=== PATIENT | female | born 1960 | race Caucasian/White ===

== ENCOUNTER 2016-10-31 16:08 | Emergency (ER) | payer SELFPAY ==
[~2016-10-31] VITALS: Ht 165.1 cm; Wt 74.8 kg
[2016-10-31 17:04] LABS: BASO % 0.4 % (0.0-1.0); EOS # 0.1 10*3/uL (0.0-0.4); EOS % 1.2 % (1.0-4.0); HEMATOCRIT 30.3 % (37.0-47.0); HEMOGLOBIN 9.7 g/dl (12.0-16.0); LYMPH % 27.9 % (27.0-41.0); MEAN CELL VOLUME 90.4 fl (81.0-99.0); MEAN PLATELET VOLUME 9.9 fl (9.6-12.3); MONO # 0.3 10*3/uL (0.1-1.0); NEUT # 4.8 10*3/uL (2.3-7.9); NEUT % 66.1 % (47.0-73.0); PLATELET COUNT AUTOMATED 242 10*3/uL (130-400); RED BLOOD COUNT 3.35 10*6/uL (4.10-5.10); WHITE BLOOD COUNT 7.3 10*3/uL (4.8-10.8)
[2016-10-31 17:20] LABS: ALBUMIN 2.6 gm/dl (3.1-4.5); ALKALINE PHOSPHATASE 94 U/L (45-117); BILIRUBIN, TOTAL 0.3 mg/dl (0.2-1.0); BUN 9 mg/dl (7-24); CARBON DIOXIDE 29 mmol/L (21-32); CHLORIDE 110 mmol/L (98-107); EST GLOM FILT AFRICAN AMERICAN > 60 ml/min; GLUCOSE 89 mg/dL (65-99); POTASSIUM 4.1 mmol/L (3.5-5.1); SGOT/AST 16 IU/L (3-35); SGPT/ALT 14 U/L (12-78); SODIUM 140 mmol/L (136-145)
[2016-10-31 17:21] LABS: C-REACTIVE PROTEIN < 0.29 MG/DL (0-0.3)
[2016-10-31] MEDS ORDERED: PREDNISONE50 MG PO (18:09)
== END 2016-10-31 18:32 | disposition home or self-care (01) ==
LOC: ED 16:08
PROVIDERS: Registered Nurse
DX: R51 Headache (principal); H53.8 Other visual disturbances; H53.2 Diplopia; F17.200 Nicotine dependence, unspecified, uncomplicated

== ENCOUNTER 2017-08-09 21:53 | Emergency (ER) | payer SELFPAY ==
[~2017-08-09] VITALS: Ht 166.3 cm; Wt 74.8 kg
--- NOTE | ~2017-08-09 | EKG ---
[place], [place] ELECTROCARDIOGRAM REPORT NAME: MELISSA AMIN UNIT #: [id number] ROOM: DOCTOR: VIKTORIYA BRYANT MD BIRTHDATE: [birth year] DOS: 08/09/2017 TIME: 2253 hours. Normal sinus rhythm at 99 beats per minute. Low voltage T waves in lateral chest leads. No previous tracing is available for comparison. VIKTORIYA BRYANT MD CM:EKGRPT:ELECTROCARDIOGRAM REPORT 1718 2300 VIKTORIYA BRYANT MD
[~2017-08-09 21:53] MED LIST: PREDNISONE50 MG PO
[2017-08-09 22:36] LABS: BASO % 0.3 % (0.0-1.0); EOS # 0.1 10*3/uL (0.0-0.4); EOS % 2.1 % (1.0-4.0); HEMATOCRIT 25.4 % (37.0-47.0); LYMPH # 2.4 10*3/uL (1.3-4.4); LYMPH % 39.2 % (27.0-41.0); MEAN CELL VOLUME 89.1 fl (81.0-99.0); MEAN CORPUSCULAR HGB 28.1 pg (27.0-31.0); MEAN CORPUSCULAR HGB CONC 31.5 g/dl (33.0-37.0); MEAN PLATELET VOLUME 10.2 fl (9.6-12.3); MONO # 0.3 10*3/uL (0.1-1.0); MONO % 4.7 % (3.0-9.0); NEUT # 3.3 10*3/uL (2.3-7.9); NEUT % 53.2 % (47.0-73.0); NUCLEATED RED BLOOD CELL 0.3 % (0.0-0.0); PLATELET COUNT AUTOMATED 227 10*3/uL (130-400); RED BLOOD COUNT 2.85 10*6/uL (4.10-5.10); WHITE BLOOD COUNT 6.1 10*3/uL (4.8-10.8)
[2017-08-09 22:53] LABS: ALBUMIN 2.7 gm/dl (3.1-4.5); ALKALINE PHOSPHATASE 75 U/L (45-117); BUN 13 mg/dl (7-24); CHLORIDE 107 mmol/L (98-107); POTASSIUM 3.9 mmol/L (3.5-5.1); SGOT/AST 17 IU/L (3-35); SGPT/ALT 14 U/L (12-78); SODIUM 135 mmol/L (136-145)
[2017-08-09 22:59] LABS: TOTAL PROTEIN 11.9 gm/dL (6.4-8.2)
[2017-08-09 23:00] LABS: TROPONIN I < 0.015 ng/ml (<0.045)
[2017-08-10] MEDS ORDERED: CYCLOBENZAPRINE5 M3 PO (02:00)
[2017-08-10] MEDS ORDERED: NORCO 5-325 TA1 EACH PO (02:00)
[2017-08-10] MEDS ORDERED: NAPROSYN500 MG PO (02:00)
== END 2017-08-10 02:06 | disposition home or self-care (01) ==
LOC: ED 21:53
PROVIDERS: Physician Assistant
DX: M25.512 Pain in left shoulder (principal); F17.200 Nicotine dependence, unspecified, uncomplicated; Z79.899 Other long term (current) drug therapy; X50.9XXA Other and unspecified overexertion or strenuous movements or postures, initial encounter; Y93.89 Activity, other specified; Y92.69 Other specified industrial and construction area as the place of occurrence of the external cause; Y99.9 Unspecified external cause status

== ENCOUNTER → 2017-08-30 | Outpatient (CLI) | payer MEDICAID ==
[~2017-08-30] MED LIST changes: +CYCLOBENZAPRINE5 M3 PO; +NAPROSYN500 MG PO; +NORCO 5-325 TA1 EACH PO
[2017-08-30 16:46] LABS: BASO % 0.5 % (0.0-1.0); EOS # 0.1 10*3/uL (0.0-0.4); EOS % 1.8 % (1.0-4.0); HEMOGLOBIN 8.3 g/dl (12.0-16.0); LYMPH # 2.5 10*3/uL (1.3-4.4); MEAN CELL VOLUME 89.1 fl (81.0-99.0); MEAN CORPUSCULAR HGB 27.4 pg (27.0-31.0); MEAN CORPUSCULAR HGB CONC 30.7 g/dl (33.0-37.0); MONO # 0.2 10*3/uL (0.1-1.0); MONO % 4.1 % (3.0-9.0); NEUT # 2.7 10*3/uL (2.3-7.9); NEUT % 48.1 % (47.0-73.0); NUCLEATED RED BLOOD CELL 0.4 % (0.0-0.0); PLATELET COUNT AUTOMATED 258 10*3/uL (130-400); RED BLOOD COUNT 3.03 10*6/uL (4.10-5.10); RED CELL DISTRI WIDTH 20.5 % (0-14.5); WHITE BLOOD COUNT 5.6 10*3/uL (4.8-10.8)
[2017-08-30 17:08] LABS: ALBUMIN 2.8 gm/dl (3.1-4.5); CREATININE 1.22 mg/dL (0.55-1.02); POTASSIUM 3.7 mmol/L (3.5-5.1)
[2017-08-30 17:56] LABS: URIC ACID 6.9 mg/dL (2.6-6.0)
[2017-08-30 18:07] LABS: TOTAL PROTEIN 12.8 gm/dL (6.4-8.2)
[2017-08-31 07:04] LABS: TOTAL PROTEIN, SERUM 11.8 g/dL (6.0-8.5)
[2017-09-01 00:07] LABS: BETA-2 MICROGLOBULIN 010181 4.6 mg/L (0.6-2.4)
[2017-09-02 15:05] LABS: A/G RATIO 0.4 (0.7-1.7); ALBUMIN 3.4 g/dL (2.9-4.4); ALPHA-1-GLOBULIN 0.2 g/dL (0.0-0.4); ALPHA-2-GLOBULIN 0.7 g/dL (0.4-1.0); BETA GLOBULIN 1.1 g/dL (0.7-1.3); GAMMA GLOBULIN 6.4 g/dL (0.4-1.8); GLOBULIN, TOTAL 8.4 g/dL (2.2-3.9); M-SPIKE 6.3 g/dL (Not Observed)
== END | disposition home or self-care (01) ==
LOC: LAB 16:26
PROVIDERS: Chiropractor Orthopedic
DX: D49.89 Neoplasm of unspecified behavior of other specified sites (principal)

== ENCOUNTER → 2017-09-02 | Outpatient (CLI) | payer MEDICAID ==
[2017-09-03 15:07] LABS: ALBUMIN, URINE 14.3 % (.); ALPHA - 2 - GLOBULIN, URINE 13.4 % (.); BETA GLOBULIN, URINE 36.7 % (.); GAMMA GLOBULIN, URINE 35.7 % (.); M-SPIKE, % Not Observed % (Not Observed); PROTEIN,TOTAL - URINE RANDOM <4.0 mg/dL (Not Estab.)
== END | disposition home or self-care (01) ==
LOC: LAB 10:19
PROVIDERS: Chiropractor Orthopedic
DX: D49.89 Neoplasm of unspecified behavior of other specified sites (principal)

== ENCOUNTER → 2017-09-09 | Outpatient (CLI) | payer OTHER ==
[2017-09-09 14:28] LABS: FERRITIN 35.4 ng/mL (10.0-291.0)
[2017-09-10 08:10] LABS: IMMUNOGLOBULIN G, QNT 7267 mg/dL (700-1600); IMMUNOGLOBULIN M, QNT 9 mg/dL (26-217)
== END | disposition home or self-care (01) ==
LOC: LAB 13:25
PROVIDERS: Chiropractor Orthopedic
DX: D49.89 Neoplasm of unspecified behavior of other specified sites (principal)

== ENCOUNTER → 2017-10-20 | Outpatient (CLI) | payer OTHER ==
[2017-10-20 10:43] LABS: HEMATOCRIT 30.1 % (37.0-47.0); HEMOGLOBIN 9.6 g/dl (12.0-16.0); MEAN CORPUSCULAR HGB 29.4 pg (27.0-31.0); MEAN CORPUSCULAR HGB CONC 31.9 g/dl (33.0-37.0); MEAN PLATELET VOLUME 10.4 fl (9.6-12.3); NUCLEATED RED BLOOD CELL 0.1 10*3/uL (0.0-0.0); PLATELET COUNT AUTOMATED 165 10*3/uL (130-400); RED BLOOD COUNT 3.27 10*6/uL (4.10-5.10); RED CELL DISTRI WIDTH 17.8 % (0-14.5); WHITE BLOOD COUNT 4.8 10*3/uL (4.8-10.8)
[2017-10-20 11:08] LABS: ALBUMIN 2.4 gm/dl (3.1-4.5); CREATININE 1.15 mg/dL (0.55-1.02); PLATELET SUFFICIENCY NORMAL (NORMAL); POLYCHROMASIA SLIGHT; POTASSIUM 4.1 mmol/L (3.5-5.1); ROULEAUX MARKED; TOTAL CELLS COUNTED 100 #CELLS; TOTAL PROTEIN 11.6 gm/dL (6.4-8.2)
== END | disposition home or self-care (01) ==
LOC: LAB 10:16
PROVIDERS: Internal Medicine Hematology & Oncology
DX: C90.00 Multiple myeloma not having achieved remission (principal); R79.89 Other specified abnormal findings of blood chemistry

== ENCOUNTER → 2017-10-22 | Outpatient (CLI) | payer OTHER ==
[2017-10-24 16:10] LABS: ALBUMIN, URINE 29.9 % (.); ALPHA - 2 - GLOBULIN, URINE 20.3 % (.); ALPHA-1-GLOBULIN, URINE 8.8 % (.); BETA GLOBULIN, URINE 25.8 % (.); GAMMA GLOBULIN, URINE 15.1 % (.); M-SPIKE, % 8.3 % (Not Observed); M-SPIKE, MG/24 HR 10.2 mg/24 hr (Not Observed); PROTEIN,TOTAL - URINE RANDOM 4.1 mg/dL (Not Estab.)
== END | disposition home or self-care (01) ==
LOC: LAB 11:57
PROVIDERS: Internal Medicine Hematology & Oncology
DX: C90.00 Multiple myeloma not having achieved remission (principal)

== ENCOUNTER → 2017-10-27 | Outpatient (CLI) | payer OTHER ==
[2017-10-27 11:10] LABS: HEMATOCRIT 30.2 % (37.0-47.0); HEMOGLOBIN 9.4 g/dl (12.0-16.0); MEAN CELL VOLUME 92.6 fl (81.0-99.0); MEAN CORPUSCULAR HGB 28.8 pg (27.0-31.0); MEAN CORPUSCULAR HGB CONC 31.1 g/dl (33.0-37.0); MEAN PLATELET VOLUME 11.7 fl (9.6-12.3); NUCLEATED RED BLOOD CELL 0.1 10*3/uL (0.0-0.0); NUCLEATED RED BLOOD CELL 1.3 % (0.0-0.0); PLATELET COUNT AUTOMATED 152 10*3/uL (130-400); RED BLOOD COUNT 3.26 10*6/uL (4.10-5.10); RED CELL DISTRI WIDTH 18.3 % (0-14.5); WHITE BLOOD COUNT 5.3 10*3/uL (4.8-10.8)
[2017-10-27 11:28] LABS: TOTAL CELLS COUNTED 100 #CELLS
[2017-10-27 11:33] LABS: PLATELET SUFFICIENCY NORMAL (NORMAL); POLYCHROMASIA SLIGHT; ROULEAUX MARKED
== END | disposition home or self-care (01) ==
LOC: LAB 10:13
PROVIDERS: Internal Medicine Hematology & Oncology
DX: C90.00 Multiple myeloma not having achieved remission (principal)

== ENCOUNTER → 2017-11-12 | Outpatient (CLI) | payer OTHER ==
[2017-11-12 13:39] LABS: HEMATOCRIT 27.7 % (37.0-47.0); HEMOGLOBIN 8.6 g/dl (12.0-16.0); MEAN CELL VOLUME 92.6 fl (81.0-99.0); MEAN CORPUSCULAR HGB 28.8 pg (27.0-31.0); MEAN PLATELET VOLUME 9.2 fl (9.6-12.3); NUCLEATED RED BLOOD CELL 1.2 % (0.0-0.0); PLATELET COUNT AUTOMATED 200 10*3/uL (130-400); RED BLOOD COUNT 2.99 10*6/uL (4.10-5.10); RED CELL DISTRI WIDTH 18.6 % (0-14.5); WHITE BLOOD COUNT 3.3 10*3/uL (4.8-10.8)
[2017-11-12 14:05] LABS: ATYPICAL LYMPHS 1 % (0-0); BASOPHILS 2 % (0-1); PLATELET SUFFICIENCY NORMAL (NORMAL); POLYCHROMASIA SLIGHT; TOTAL CELLS COUNTED 100 #CELLS
[2017-11-12 14:06] LABS: ALBUMIN 2.6 gm/dl (3.1-4.5); CREATININE 1.17 mg/dL (0.55-1.02); POTASSIUM 3.7 mmol/L (3.5-5.1); TOTAL PROTEIN 10.3 gm/dL (6.4-8.2)
== END | disposition home or self-care (01) ==
LOC: LAB 13:19
PROVIDERS: Internal Medicine Hematology & Oncology
DX: C90.00 Multiple myeloma not having achieved remission (principal)

== ENCOUNTER → 2017-11-25 | Outpatient (CLI) | payer OTHER ==
[2017-11-25 15:56] LABS: HEMATOCRIT 24.9 % (37.0-47.0); MEAN CELL VOLUME 92.2 fl (81.0-99.0); MEAN CORPUSCULAR HGB 29.6 pg (27.0-31.0); MEAN CORPUSCULAR HGB CONC 32.1 g/dl (33.0-37.0); MEAN PLATELET VOLUME 11.3 fl (9.6-12.3); NUCLEATED RED BLOOD CELL 0.1 10*3/uL (0.0-0.0); NUCLEATED RED BLOOD CELL 1.5 % (0.0-0.0); PLATELET COUNT AUTOMATED 106 10*3/uL (130-400); RED CELL DISTRI WIDTH 19.9 % (0-14.5); WHITE BLOOD COUNT 3.3 10*3/uL (4.8-10.8)
[2017-11-25 16:21] LABS: BASOPHILS 2 % (0-1); PLATELET SUFFICIENCY LOW (NORMAL); TOTAL CELLS COUNTED 100 #CELLS
[2017-11-25 16:22] LABS: POLYCHROMASIA SLIGHT
== END | disposition home or self-care (01) ==
LOC: LAB 15:38
PROVIDERS: Internal Medicine Hematology & Oncology
DX: C90.00 Multiple myeloma not having achieved remission (principal)

== ENCOUNTER → 2017-12-12 | Outpatient (CLI) | payer OTHER ==
[~2017-12-12] MED LIST changes: +ASPIRIN81 M1 PO; +COLACE100 MG PO; +DECADRON4 MG PO; +OMEPRAZOLE40 MG PO; +ONDANSETRON ODT8 MG PO; +REVLIMID25 MG PO; +TRAMADOL HCL50 MG PO; +ZOVIRAX400 MG PO
[2017-12-12 09:30] VITALS: BP 106/56
[2017-12-12 09:52] LABS: BASO # 0.1 10*3/uL (0.0-0.1); BASO % 2.1 % (0.0-1.0); EOS % 1.7 % (1.0-4.0); HEMATOCRIT 24.3 % (37.0-47.0); HEMOGLOBIN 7.4 g/dl (12.0-16.0); LYMPH # 0.6 10*3/uL (1.3-4.4); LYMPH % 26.1 % (27.0-41.0); MEAN CELL VOLUME 95.7 fl (81.0-99.0); MEAN CORPUSCULAR HGB 29.1 pg (27.0-31.0); MEAN CORPUSCULAR HGB CONC 30.5 g/dl (33.0-37.0); MEAN PLATELET VOLUME 10.7 fl (9.6-12.3); MONO # 0.3 10*3/uL (0.1-1.0); MONO % 11.5 % (3.0-9.0); NEUT # 1.4 10*3/uL (2.3-7.9); NEUT % 58.2 % (47.0-73.0); PLATELET COUNT AUTOMATED 233 10*3/uL (130-400); RED BLOOD COUNT 2.54 10*6/uL (4.10-5.10); RED CELL DISTRI WIDTH 20.5 % (0-14.5); WHITE BLOOD COUNT 2.3 10*3/uL (4.8-10.8)
[2017-12-12 11:25] VITALS: BP 97/46
[2017-12-12 11:45] VITALS: BP 99/57
[2017-12-12 12:20] VITALS: BP 93/59
[2017-12-12 14:15] VITALS: BP 92/57
[2017-12-12 14:50] VITALS: BP 96/62
[2017-12-12 15:44] LABS: BASO # 0.1 10*3/uL (0.0-0.1); BASO % 2.3 % (0.0-1.0); EOS % 1.2 % (1.0-4.0); HEMATOCRIT 30.2 % (37.0-47.0); LYMPH # 0.8 10*3/uL (1.3-4.4); LYMPH % 31.4 % (27.0-41.0); MEAN CORPUSCULAR HGB 29.3 pg (27.0-31.0); MEAN CORPUSCULAR HGB CONC 31.8 g/dl (33.0-37.0); MEAN PLATELET VOLUME 10.4 fl (9.6-12.3); MONO # 0.3 10*3/uL (0.1-1.0); MONO % 13.2 % (3.0-9.0); NEUT # 1.3 10*3/uL (2.3-7.9); NEUT % 51.5 % (47.0-73.0); PLATELET COUNT AUTOMATED 209 10*3/uL (130-400); RED BLOOD COUNT 3.28 10*6/uL (4.10-5.10); RED CELL DISTRI WIDTH 18.6 % (0-14.5); WHITE BLOOD COUNT 2.6 10*3/uL (4.8-10.8)
[2017-12-12 15:46] LABS: HEMOGLOBIN 9.6 g/dl (12.0-16.0); MEAN CELL VOLUME 92.1 fl (81.0-99.0)
== END | disposition home or self-care (01) ==
LOC: TRNFUSION 03:30
PROVIDERS: Internal Medicine Hematology & Oncology
DX: C90.00 Multiple myeloma not having achieved remission (principal)

== ENCOUNTER → 2017-12-29 | Outpatient (CLI) | payer OTHER ==
[2017-12-29 14:42] LABS: BASO % 0.7 % (0.0-1.0); EOS # 0.1 10*3/uL (0.0-0.4); EOS % 3.1 % (1.0-4.0); HEMATOCRIT 31.9 % (37.0-47.0); LYMPH # 1.6 10*3/uL (1.3-4.4); LYMPH % 35.1 % (27.0-41.0); MEAN CELL VOLUME 92.2 fl (81.0-99.0); MEAN CORPUSCULAR HGB 28.9 pg (27.0-31.0); MEAN CORPUSCULAR HGB CONC 31.3 g/dl (33.0-37.0); MEAN PLATELET VOLUME 12.6 fl (9.6-12.3); MONO # 0.3 10*3/uL (0.1-1.0); MONO % 6.7 % (3.0-9.0); NEUT # 2.4 10*3/uL (2.3-7.9); NEUT % 53.5 % (47.0-73.0); PLATELET COUNT AUTOMATED 139 10*3/uL (130-400); RED BLOOD COUNT 3.46 10*6/uL (4.10-5.10); RED CELL DISTRI WIDTH 18.3 % (0-14.5); WHITE BLOOD COUNT 4.5 10*3/uL (4.8-10.8)
[2017-12-29 14:58] LABS: ALBUMIN 2.6 gm/dl (3.1-4.5); ALKALINE PHOSPHATASE 63 U/L (45-117); BUN 11 mg/dl (7-24); CHLORIDE 105 mmol/L (98-107); CREATININE 1.01 mg/dL (0.55-1.02); POTASSIUM 3.8 mmol/L (3.5-5.1); SGOT/AST 14 IU/L (3-35); SGPT/ALT 15 U/L (12-78); SODIUM 137 mmol/L (136-145); TOTAL PROTEIN 8.3 gm/dL (6.4-8.2)
== END | disposition home or self-care (01) ==
LOC: LAB 14:09
PROVIDERS: Internal Medicine Hematology & Oncology
DX: C90.00 Multiple myeloma not having achieved remission (principal)

== ENCOUNTER → 2018-01-20 | Outpatient (CLI) | payer OTHER ==
[2018-01-20 14:10] LABS: HEMATOCRIT 33.4 % (37.0-47.0); HEMOGLOBIN 10.2 g/dl (12.0-16.0); MEAN CELL VOLUME 93.3 fl (81.0-99.0); MEAN CORPUSCULAR HGB 28.5 pg (27.0-31.0); MEAN CORPUSCULAR HGB CONC 30.5 g/dl (33.0-37.0); MEAN PLATELET VOLUME 12.1 fl (9.6-12.3); PLATELET COUNT AUTOMATED 204 10*3/uL (130-400); RED BLOOD COUNT 3.58 10*6/uL (4.10-5.10)
[2018-01-20 14:22] LABS: ALBUMIN 2.9 gm/dl (3.1-4.5); ALKALINE PHOSPHATASE 75 U/L (45-117); BUN 12 mg/dl (7-24); CHLORIDE 108 mmol/L (98-107); CREATININE 0.97 mg/dL (0.55-1.02); POTASSIUM 4.2 mmol/L (3.5-5.1); SGOT/AST 10 IU/L (3-35); SGPT/ALT 13 U/L (12-78); SODIUM 141 mmol/L (136-145); TOTAL PROTEIN 8.4 gm/dL (6.4-8.2)
[2018-01-20 14:32] LABS: WHITE BLOOD COUNT 1.4 10*3/uL (4.8-10.8)
[2018-01-20 15:06] LABS: TOTAL CELLS COUNTED 100 #CELLS
[2018-01-20 15:07] LABS: OVALOCYTES FEW; PLATELET SUFFICIENCY NORMAL (NORMAL); POLYCHROMASIA SLIGHT
== END | disposition home or self-care (01) ==
LOC: LAB 13:46
PROVIDERS: Internal Medicine Hematology & Oncology
DX: C90.00 Multiple myeloma not having achieved remission (principal)

== ENCOUNTER → 2019-07-21 | Outpatient (CLI) | payer OTHER | END | disposition home or self-care (01) | LOC: MAMMO 15:22 | DX: Z12.31 Encounter for screening mammogram for malignant neoplasm of breast (principal) ==

== ENCOUNTER → 2019-08-13 | Outpatient (CLI) | payer OTHER | END | disposition home or self-care (01) | LOC: US 10:30 | DX: R92.8 Other abnormal and inconclusive findings on diagnostic imaging of breast (principal) ==

== ENCOUNTER 2019-09-26 12:09 | Emergency (ER) | payer OTHER ==
[~2019-09-26] VITALS: Ht 162.5 cm; Wt 77.1 kg
[2019-09-26 13:27] LABS: HEMATOCRIT 39.4 % (37.0-47.0); HEMOGLOBIN 13.2 g/dl (12.0-16.0); MEAN CELL VOLUME 91.6 fl (81.0-99.0); MEAN CORPUSCULAR HGB 30.7 pg (27.0-31.0); MEAN CORPUSCULAR HGB CONC 33.5 g/dl (33.0-37.0); MEAN PLATELET VOLUME 11.3 fl (9.6-12.3); PLATELET COUNT AUTOMATED 149 10*3/uL (130-400); RED CELL DISTRI WIDTH 14.2 % (0-14.5); WHITE BLOOD COUNT 2.2 10*3/uL (4.8-10.8)
[2019-09-26 13:37] LABS: ACT PARTIAL THROMBO TIME 61.6 SECONDS (20.0-32.1); INTERNATIONAL NORM RATIO 1.7 (2.0-3.5)
[2019-09-26 13:44] LABS: ALBUMIN 2.4 gm/dl (3.1-4.5); ALKALINE PHOSPHATASE 56 U/L (45-117); BUN 16 mg/dl (7-24); CHLORIDE 101 mmol/L (98-107); CREATININE 1.17 mg/dL (0.55-1.02); LIPASE 54 U/L (73-393); POTASSIUM 3.6 mmol/L (3.5-5.1); SGOT/AST 18 IU/L (3-35); SGPT/ALT 31 U/L (12-78); SODIUM 133 mmol/L (136-145); TOTAL PROTEIN 7.2 gm/dL (6.4-8.2); TROPONIN I < 0.015 ng/ml (<0.045)
[2019-09-26 13:50] LABS: BURR CELLS FEW; PLATELET SUFFICIENCY NORMAL (NORMAL); POLYCHROMASIA SLIGHT; SCHISTOCYTES FEW; TOTAL CELLS COUNTED 100 #CELLS; TOXIC GRANULATION MODERATE
[2019-09-26 15:22] LABS: BILIRUBIN 1+ (NEGATIVE); BLOOD 3+ (NEGATIVE); CLARITY SL CLOUDY (CLEAR); GLUCOSE NEGATIVE (NEGATIVE); KETONE TRACE (NEGATIVE); LEUKO ESTERASE NEGATIVE (NEGATIVE); NITRITE NEGATIVE (NEGATIVE); UROBILINOGEN 0.2 E.U./dl (0.2-1.0)
[2019-09-26 15:26] LABS: COLOR ORANGE (YELLOW)
[2019-09-26 15:27] LABS: WBC 0-2 wbc/hpf (0-5)
[2019-09-26 15:28] LABS: BACTERIA 3+
== END 2019-09-26 17:36 | disposition short-term general hospital (02) ==
LOC: ED 12:09
PROVIDERS: Physician Assistant
DX: D70.9 Neutropenia, unspecified (principal); A41.9 Sepsis, unspecified organism; C90.00 Multiple myeloma not having achieved remission; J18.9 Pneumonia, unspecified organism; K21.9 Gastro-esophageal reflux disease without esophagitis; F17.200 Nicotine dependence, unspecified, uncomplicated; Z79.899 Other long term (current) drug therapy; Z79.82 Long term (current) use of aspirin

== ENCOUNTER → 2020-04-05 | Outpatient (CLI) | payer MEDICARE, MEDICAID | END | disposition home or self-care (01) | LOC: RAD 11:53 | PROVIDERS: ATTEND Family Medicine | DX: F17.210 Nicotine dependence, cigarettes, uncomplicated (principal) ==

== ENCOUNTER 2020-09-05 16:53 | Emergency (ER) | payer MEDICARE, MEDICAID | END 2020-09-05 19:01 | disposition left against medical advice (07) | LOC: ED 16:53 | DX: R53.83 Other fatigue (principal); R53.1 Weakness; Z53.21 Procedure and treatment not carried out due to patient leaving prior to being seen by health care provider ==

== ENCOUNTER → 2021-03-10 | Outpatient (CLI) | payer OTHER | END | disposition home or self-care (01) | LOC: RAD 12:43 | PROVIDERS: ATTEND Family Medicine | DX: J84.10 Pulmonary fibrosis, unspecified (principal); J06.9 Acute upper respiratory infection, unspecified ==

== ENCOUNTER → 2021-10-30 | Outpatient (CLI) | payer OTHER ==
[2021-10-30 17:45] LABS: BASO % 0.2 % (0.0-1.0); EOS # 0.1 10*3/uL (0.0-0.4); EOS % 1.5 % (1.0-4.0); HEMATOCRIT 38.7 % (37.0-47.0); LYMPH # 0.6 10*3/uL (1.3-4.4); LYMPH % 10.2 % (27.0-41.0); MEAN CELL VOLUME 94.9 fl (81.0-99.0); MEAN CORPUSCULAR HGB 30.6 pg (27.0-31.0); MEAN CORPUSCULAR HGB CONC 32.3 g/dl (33.0-37.0); MEAN PLATELET VOLUME 9.7 fl (9.6-12.3); MONO # 0.3 10*3/uL (0.1-1.0); MONO % 5.6 % (3.0-9.0); NEUT # 4.9 10*3/uL (2.3-7.9); PLATELET COUNT AUTOMATED 155 10*3/uL (130-400); RED BLOOD COUNT 4.08 10*6/uL (4.10-5.10); RED CELL DISTRI WIDTH 15.1 % (0-14.5); WHITE BLOOD COUNT 5.9 10*3/uL (4.8-10.8)
[2021-10-30 17:59] LABS: BUN 8 mg/dl (7-24); CHLORIDE 108 mmol/L (98-107); CREATININE 0.67 mg/dL (0.55-1.02); POTASSIUM 3.9 mmol/L (3.5-5.1); SODIUM 139 mmol/L (136-145)
== END | disposition home or self-care (01) ==
LOC: LAB 17:10
PROVIDERS: ATTEND Family Medicine
DX: R91.1 Solitary pulmonary nodule (principal); J06.9 Acute upper respiratory infection, unspecified

== ENCOUNTER → 2022-03-23 | Outpatient (CLI) | payer OTHER | END | disposition home or self-care (01) | LOC: RAD 16:15 | PROVIDERS: ATTEND Family Medicine | DX: J43.8 Other emphysema (principal) ==

== ENCOUNTER 2024-05-04 15:07 | Emergency (ER) | payer OTHER ==
[~2024-05-04] VITALS: Ht 157.4 cm; Wt 61.2 kg
[2024-05-04] MEDS ORDERED: Acetaminophen/Oxycodone 5 MG/325 MG TABLET PO ONE (15:20)
[2024-05-04 16:14] LABS: BASO % 0.5 % (0.0-1.0); EOS # 0.1 10*3/uL (0.0-0.4); EOS % 1.4 % (1.0-4.0); HEMATOCRIT 35.7 % (37.0-47.0); LYMPH # 0.2 10*3/uL (1.3-4.4); LYMPH % 2.7 % (27.0-41.0); MEAN CELL VOLUME 102.9 fl (81.0-99.0); MEAN CORPUSCULAR HGB CONC 31.1 g/dl (33.0-37.0); MONO # 0.3 10*3/uL (0.1-1.0); MONO % 4.2 % (3.0-9.0); NEUT # 5.9 10*3/uL (2.3-7.9); NEUT % 88.5 % (47.0-73.0); PLATELET COUNT AUTOMATED 187 10*3/uL (130-400); RED BLOOD COUNT 3.47 10*6/uL (4.10-5.10); RED CELL DISTRI WIDTH 19.8 % (0-14.5); WHITE BLOOD COUNT 6.6 10*3/uL (4.8-10.8)
[2024-05-04 16:29] LABS: POTASSIUM 3.4 mmol/L (3.4-5.1)
[2024-05-04] MEDS ORDERED: SODIUM CHLORIDE 0.9% 1,000 ML IV ONE (16:35)
[2024-05-04] MEDS ORDERED: MORPHINE Sulfate 2 MG/ML SYR IV ONE (16:35)
[2024-05-04] MEDS ORDERED: NEURONTIN300 MG PO (17:33)
[2024-05-04] MEDS ORDERED: OXYCODONE5 M1 PO (17:33)
== END 2024-05-04 18:56 | disposition short-term general hospital (02) ==
LOC: ED 15:07
PROVIDERS: Internal Medicine
DX: S82.391A Other fracture of lower end of right tibia, initial encounter for closed fracture (principal); K21.9 Gastro-esophageal reflux disease without esophagitis; Z98.890 Other specified postprocedural states; W07.XXXA Fall from chair, initial encounter; Y93.89 Activity, other specified; Y92.009 Unspecified place in unspecified non-institutional (private) residence as the place of occurrence of the external cause; Y99.8 Other external cause status

== ENCOUNTER 2024-06-02 21:43 | Inpatient (IN) | payer OTHER, MEDICAID ==
[~2024-06-02] VITALS: Ht 157.4 cm; Wt 59.9 kg
[~2024-06-02 21:43] MED LIST changes: +NEURONTIN300 MG PO; +OXYCODONE5 M1 PO
[2024-06-02 21:58] VITALS: BP 98/42
[2024-06-02] MEDS ORDERED: SODIUM CHLORIDE 0.9% 1,000 ML IV SCH (22:30)
[2024-06-02 22:47] LABS: HEMATOCRIT 27.5 % (37.0-47.0); MEAN CELL VOLUME 101.5 fl (81.0-99.0); MEAN CORPUSCULAR HGB 30.3 pg (27.0-31.0); MEAN CORPUSCULAR HGB CONC 29.8 g/dl (33.0-37.0); MEAN PLATELET VOLUME 9.9 fl (9.6-12.3); PLATELET COUNT AUTOMATED 180 10*3/uL (130-400); RED BLOOD COUNT 2.71 10*6/uL (4.10-5.10); RED CELL DISTRI WIDTH 19.2 % (0-14.5); WHITE BLOOD COUNT 5.2 10*3/uL (4.8-10.8)
[2024-06-02 22:49] LABS: MANUAL DIFF REFLEX YES
[2024-06-02 22:58] LABS: ACT PARTIAL THROMBO TIME 60.1 SECONDS (20.0-32.1)
[2024-06-02 23:07] LABS: BUN 15 mg/dl (9-23); CHLORIDE 107 mmol/L (98-107); LIPASE 21 U/L (12-53)
[2024-06-02 23:15] LABS: PLATELET SUFFICIENCY NORMAL (NORMAL); TOTAL CELLS COUNTED 100 #CELLS
[2024-06-03] VITALS (15 sets, daily range): BP systolic 79–137; BP diastolic 41–60
[2024-06-03] MEDS ORDERED: Ceftriaxone Sodium 1 GM/10 ML SYR IV ONE (01:20)
[2024-06-03] MEDS ORDERED: AZITHROMYCIN 250 MG TAB PO ONE (01:20)
[2024-06-03] MEDS ORDERED: SODIUM CHLORIDE 0.9% 1,000 ML IV SCH (02:45)
[2024-06-03] MEDS ORDERED: MORPHINE Sulfate 2 MG/ML SYR IV PRN (02:55)
[2024-06-03] MEDS ORDERED: Albuterol Sulf/Ipratropium 3 ML VIAL NEB PRN (02:55)
[2024-06-03] MEDS ORDERED: BISACODYL 5 MG TAB PO PRN (02:55)
[2024-06-03] MEDS ORDERED: Acetaminophen/Hydrocodone 5 MG/325 MG TABLET PO PRN (02:55)
[2024-06-03] MEDS ORDERED: TEMAZEPAM 15 MG CAP PO PRN (02:55)
[2024-06-03] MEDS ORDERED: BISACODYL 10 MG SUPP R PRN (02:55)
[2024-06-03] MEDS ORDERED: Ondansetron Hydrochloride 4 MG/2 ML VIAL IV PRN (02:55)
[2024-06-03] MEDS ORDERED: Magnesium Hydroxide 30 ML UDC PO PRN (02:55)
[2024-06-03] MEDS ORDERED: ACETAMINOPHEN 325 MG TAB PO PRN (02:55)
[2024-06-03] MEDS ORDERED: ACETAMINOPHEN 650 MG SUPP R PRN (02:55)
[2024-06-03] MEDS ORDERED: SODIUM CHLORIDE 0.9% 1,000 ML IV ONE ×2 (03:05→21:25)
[2024-06-03 03:28] LABS: ABG O2 SATURATION 95.8 % (94.0-98.0); ARTERIAL BLOOD GAS PH 7.389 (7.350-7.450); ARTERIAL BLOOD GAS PO2 88.4 mmHg (83.0-108.0)
[2024-06-03 03:36] LABS: ABG BASE EXCESS -2.4 mmol/L (-2.0-3.0)
[2024-06-03] MEDS ORDERED: REMERON15 M2 PO (05:30)
[2024-06-03] MEDS ORDERED: POTASSIUM CHLO20 ME3 PO (05:31)
[2024-06-03] MEDS ORDERED: SMZ/TMP DS 800-160 (05:34)
[2024-06-03] MEDS ORDERED: XARE20MG PO (05:38)
[2024-06-03] MEDS ORDERED: NATURE'S BLEND F1 MG PO (05:39)
[2024-06-03] MEDS ORDERED: FEOSOL325 MG PO (05:41)
[2024-06-03] MEDS ORDERED: ASCORBIC ACID500 M2 PO (05:42)
[2024-06-03] MEDS ORDERED: Pantoprazole Sodium 40 MG TAB PO SCH (06:00)
[2024-06-03 06:26] LABS: HEMATOCRIT 24.2 % (37.0-47.0); MEAN CELL VOLUME 104.3 fl (81.0-99.0); MEAN CORPUSCULAR HGB CONC 29.8 g/dl (33.0-37.0); MEAN PLATELET VOLUME 10.2 fl (9.6-12.3); PLATELET COUNT AUTOMATED 157 10*3/uL (130-400); RED BLOOD COUNT 2.32 10*6/uL (4.10-5.10); RED CELL DISTRI WIDTH 19.4 % (0-14.5); WHITE BLOOD COUNT 4.3 10*3/uL (4.8-10.8)
[2024-06-03 06:27] LABS: MANUAL DIFF REFLEX YES
[2024-06-03] MEDS ORDERED: IOHEXOL 350 MG/ML 100 ML VIAL IV ONE (07:15)
[2024-06-03] MEDS ORDERED: SODIUM CHLORIDE 0.9% 100 ML BAG IV ONE (07:15)
[2024-06-03 07:24] LABS: BURR CELLS FEW; OVALOCYTES FEW; PLATELET SUFFICIENCY NORMAL (NORMAL); POLYCHROMASIA SLIGHT; ROULEAUX SLIGHT; SCHISTOCYTES FEW; TOTAL CELLS COUNTED 100 #CELLS; TOXIC GRANULATION SLIGHT; VACUOLATION OF NEUTROPHILS SLIGHT
[2024-06-03 07:31] LABS: ALKALINE PHOSPHATASE 79 U/L (46-116); BUN 11 mg/dl (9-23); CHLORIDE 111 mmol/L (98-107); CHOLESTEROL 113 mg/dL (<200); FREE T4 0.92 ng/dl (0.89-1.76); LDL CHOLESTEROL 55 mg/dL (9-159); POTASSIUM 3.6 mmol/L (3.4-5.1); TRIGLYCERIDES 128 mg/dl (<150)
[2024-06-03 07:33] LABS: SGPT/ALT < 7 U/L (5-49)
[2024-06-03 07:53] LABS: VITAMIN D, 25-HYDROXY 44.9 ng/mL (30-100)
[2024-06-03] MEDS ORDERED: Midodrine Hydrochloride 5 MG TAB PO SCH (08:00)
[2024-06-03] MEDS ORDERED: MAGNESIUM SULFATE 50 ML IV ONE (08:45)
[2024-06-03] MEDS ORDERED: Enoxaparin Sodium 40 MG/0.4 ML SYR SC SCH (10:00)
[2024-06-03] MEDS ORDERED: GUAIFENESIN 600 MG TAB ER PO SCH (10:00)
[2024-06-03] MEDS ORDERED: OXYCODONE HCL (IR) 5 MG TAB PO SCH (12:00)
[2024-06-03 13:06] LABS: HEMATOCRIT 27.3 % (37.0-47.0); MANUAL DIFF REFLEX YES; MEAN CELL VOLUME 104.6 fl (81.0-99.0); MEAN CORPUSCULAR HGB 30.7 pg (27.0-31.0); MEAN CORPUSCULAR HGB CONC 29.3 g/dl (33.0-37.0); PLATELET COUNT AUTOMATED 154 10*3/uL (130-400); RED BLOOD COUNT 2.61 10*6/uL (4.10-5.10); RED CELL DISTRI WIDTH 19.1 % (0-14.5); WHITE BLOOD COUNT 5.2 10*3/uL (4.8-10.8)
[2024-06-03 13:37] LABS: BURR CELLS FEW; OVALOCYTES FEW; PLATELET SUFFICIENCY NORMAL (NORMAL); POLYCHROMASIA SLIGHT; TOTAL CELLS COUNTED 100 #CELLS
[2024-06-03 13:38] LABS: ROULEAUX SLIGHT; SCHISTOCYTES FEW; TOXIC GRANULATION SLIGHT
[2024-06-03] MEDS ORDERED: GABAPENTIN 300 MG CAP PO SCH (14:00)
[2024-06-03] MEDS ORDERED: RIVAROXABAN 20 MG TAB PO SCH (18:00)
[2024-06-03] MEDS ORDERED: AZITHROMYCIN 250 ML IV SCH (22:00)
[2024-06-03] MEDS ORDERED: Ceftriaxone Sodium 1 GM in SYRINGE INFUSION 10 ML IV SCH (22:00)
[2024-06-03] MEDS ORDERED: ACYCLOVIR 400 MG TAB PO SCH (22:00)
[2024-06-03] MEDS ORDERED: Mirtazapine 15 MG TAB PO SCH (22:00)
[2024-06-04] VITALS (8 sets, daily range): BP systolic 81–100; BP diastolic 42–60
[2024-06-04] MEDS ORDERED: FOAM BANDAGE 5X5 T ONE (01:19)
[2024-06-04] MEDS ORDERED: FOAM BANDAGE HEEL T ONE (01:19)
[2024-06-04] MEDS ORDERED: FOAM BANDAGE 1 EACH BANDAGE T ONE (01:19)
[2024-06-04] MEDS ORDERED: HYDROGEL WOUND DRESSING T ONE (01:20)
[2024-06-04 02:05] LABS: HEMOGOLBIN A1C 5.3 % (4.8-5.6)
[2024-06-04 04:24] LABS: HEMATOCRIT 23.8 % (37.0-47.0); MEAN CELL VOLUME 102.6 fl (81.0-99.0); MEAN CORPUSCULAR HGB 30.6 pg (27.0-31.0); MEAN CORPUSCULAR HGB CONC 29.8 g/dl (33.0-37.0); MEAN PLATELET VOLUME 10.4 fl (9.6-12.3); PLATELET COUNT AUTOMATED 160 10*3/uL (130-400); RED BLOOD COUNT 2.32 10*6/uL (4.10-5.10); RED CELL DISTRI WIDTH 19.1 % (0-14.5); WHITE BLOOD COUNT 4.4 10*3/uL (4.8-10.8)
[2024-06-04 04:28] LABS: MANUAL DIFF REFLEX YES
[2024-06-04 04:45] LABS: BUN 9 mg/dl (9-23); CHLORIDE 112 mmol/L (98-107); POTASSIUM 3.3 mmol/L (3.4-5.1)
[2024-06-04 05:04] LABS: PLATELET SUFFICIENCY NORMAL (NORMAL); POLYCHROMASIA SLIGHT; TOTAL CELLS COUNTED 100 #CELLS
[2024-06-04] MEDS ORDERED: POTASSIUM CHLORIDE 20 MEQ TAB PO ONE (07:20)
[2024-06-04] MEDS ORDERED: Midodrine Hydrochloride 5 MG TAB PO SCH (08:00)
[2024-06-04] MEDS ORDERED: POTASSIUM CHLORIDE 20 MEQ TAB PO SCH (10:00)
[2024-06-04] MEDS ORDERED: FERROUS SULFATE 325 MG TAB PO SCH (10:00)
[2024-06-04] MEDS ORDERED: FOLIC ACID 1 MG TAB PO SCH (10:00)
[2024-06-04] MEDS ORDERED: SODIUM CHLORIDE 0.9% 100 ML IV ONE (10:49)
[2024-06-04] MEDS ORDERED: Cefepime Hydrochloride 2 GM,IV 1 EA in SODIUM CHLORIDE 0.9% 50 ML IV SCH (16:00)
[2024-06-04 16:29] LABS: HEMATOCRIT 28.3 % (37.0-47.0); MEAN PLATELET VOLUME 9.7 fl (9.6-12.3); PLATELET COUNT AUTOMATED 176 10*3/uL (130-400); RED BLOOD COUNT 2.83 10*6/uL (4.10-5.10); RED CELL DISTRI WIDTH 20.3 % (0-14.5)
[2024-06-04 16:32] LABS: MANUAL DIFF REFLEX YES
[2024-06-04 16:56] LABS: TOTAL CELLS COUNTED 100 #CELLS
[2024-06-04 16:57] LABS: OVALOCYTES FEW; PLATELET SUFFICIENCY NORMAL (NORMAL)
[2024-06-04] MEDS ORDERED: Doxycycline Hyclate 100 MG,IV 1 EA in SODIUM CHLORIDE 0.9% 250 ML IV SCH (18:00)
[2024-06-04] MEDS ORDERED: NYSTATIN 15 GM BOT T SCH (23:05)
[2024-06-04] MEDS ORDERED: ZINC OXIDE 1 OZ TUBE T SCH (23:05)
[2024-06-05] VITALS: BP 92/54
[2024-06-05 04:00] VITALS: BP 87/51
[2024-06-05] MEDS ORDERED: OXYCODONE HCL (IR) 5 MG TAB PO PRN (05:26)
[2024-06-05 05:49] LABS: BUN 7 mg/dl (9-23); CHLORIDE 112 mmol/L (98-107); POTASSIUM 3.4 mmol/L (3.4-5.1)
[2024-06-05 06:21] LABS: HEMATOCRIT 28.5 % (37.0-47.0); MEAN CORPUSCULAR HGB 30.2 pg (27.0-31.0); MEAN CORPUSCULAR HGB CONC 30.2 g/dl (33.0-37.0); MEAN PLATELET VOLUME 10.2 fl (9.6-12.3); PLATELET COUNT AUTOMATED 159 10*3/uL (130-400); RED BLOOD COUNT 2.85 10*6/uL (4.10-5.10); RED CELL DISTRI WIDTH 20.3 % (0-14.5); WHITE BLOOD COUNT 5.7 10*3/uL (4.8-10.8)
[2024-06-05 06:25] LABS: MANUAL DIFF REFLEX YES
[2024-06-05 07:40] LABS: TOTAL CELLS COUNTED 100 #CELLS
[2024-06-05 07:41] LABS: PLATELET SUFFICIENCY NORMAL (NORMAL)
[2024-06-05 07:52] VITALS: BP 80/60
[2024-06-05 12:00] VITALS: BP 101/54
[2024-06-05] MEDS ORDERED: Meropenem 50 ML IV SCH (14:00)
[2024-06-05 14:18] LABS: BILIRUBIN Negative (Negative); BLOOD Negative (Negative); CLARITY Clear (Clear); COLOR Yellow (Yellow); GLUCOSE Negative (Negative); KETONE Negative (Negative); LEUKO ESTERASE 2+ (Negative); NITRITE Positive (Negative); SPECIFIC GRAVITY 1.015 (1.001-1.030); UROBILINOGEN 0.2 E.U./dl (0.0-1.0)
[2024-06-05 14:27] LABS: BACTERIA 2+; RBC 0-2 rbc/hpf (0-2); WBC 51-100 wbc/hpf (0-5)
[2024-06-05 16:00] VITALS: BP 89/50
[2024-06-05] MEDS ORDERED: RIVAROXABAN 20 MG TAB PO SCH (18:00)
[2024-06-05 20:00] VITALS: BP 97/53
[2024-06-05] MEDS ORDERED: DOXYCYCLINE HY100 M3 PO (22:23)
[2024-06-05] MEDS ORDERED: ERTAPENEM1 GM IV (22:23)
[2024-06-06] VITALS: BP 80/45
[2024-06-06 04:00] VITALS: BP 90/49
[2024-06-06 05:05] LABS: BUN 7 mg/dl (9-23); CHLORIDE 113 mmol/L (98-107); POTASSIUM 3.7 mmol/L (3.4-5.1)
[2024-06-06 06:35] LABS: HEMATOCRIT 28.1 % (37.0-47.0); MEAN CELL VOLUME 99.3 fl (81.0-99.0); MEAN CORPUSCULAR HGB 29.7 pg (27.0-31.0); MEAN CORPUSCULAR HGB CONC 29.9 g/dl (33.0-37.0); MEAN PLATELET VOLUME 10.8 fl (9.6-12.3); PLATELET COUNT AUTOMATED 169 10*3/uL (130-400); RED BLOOD COUNT 2.83 10*6/uL (4.10-5.10); RED CELL DISTRI WIDTH 19.9 % (0-14.5); WHITE BLOOD COUNT 5.3 10*3/uL (4.8-10.8)
[2024-06-06 06:40] LABS: MANUAL DIFF REFLEX YES
[2024-06-06 07:13] LABS: PLATELET SUFFICIENCY NORMAL (NORMAL); TOTAL CELLS COUNTED 100 #CELLS
[2024-06-06 07:14] LABS: TOXIC GRANULATION SLIGHT; VACUOLATION OF NEUTROPHILS SLIGHT
[2024-06-06 08:00] VITALS: BP 94/52
[2024-06-06] MEDS ORDERED: FOAM BANDAGE 1 EACH BANDAGE T ONE (09:41)
[2024-06-06] MEDS ORDERED: Loperamide Hydrochloride 2 MG CAP PO ONE (10:20)
[2024-06-06] MEDS ORDERED: FOAM BANDAGE HEEL T ONE (10:38)
[2024-06-06 12:00] VITALS: BP 102/65
[2024-06-06 16:00] VITALS: BP 109/64
[2024-06-06 20:00] VITALS: BP 92/42
[2024-06-06] MEDS ORDERED: Doxycycline Hyclate 100 MG CAP PO SCH (22:00)
[2024-06-07] VITALS: BP 91/54
[2024-06-07 05:32] LABS: BUN 7 mg/dl (9-23); CHLORIDE 112 mmol/L (98-107); POTASSIUM 3.4 mmol/L (3.4-5.1)
[2024-06-07 06:07] LABS: BASO % 0.6 % (0.0-1.0); EOS # 0.2 10*3/uL (0.0-0.4); EOS % 4.3 % (1.0-4.0); HEMATOCRIT 29.1 % (37.0-47.0); MEAN CELL VOLUME 100.7 fl (81.0-99.0); MEAN CORPUSCULAR HGB 30.1 pg (27.0-31.0); MEAN CORPUSCULAR HGB CONC 29.9 g/dl (33.0-37.0); MEAN PLATELET VOLUME 10.6 fl (9.6-12.3); MONO # 0.4 10*3/uL (0.1-1.0); MONO % 8.8 % (3.0-9.0); NEUT # 3.6 10*3/uL (2.3-7.9); NEUT % 78.3 % (47.0-73.0); PLATELET COUNT AUTOMATED 176 10*3/uL (130-400); RED BLOOD COUNT 2.89 10*6/uL (4.10-5.10); RED CELL DISTRI WIDTH 19.4 % (0-14.5); WHITE BLOOD COUNT 4.6 10*3/uL (4.8-10.8)
[2024-06-07 07:45] VITALS: BP 88/46
[2024-06-07] MEDS ORDERED: FLUTICASONE PROPIONATE Nasal 16 Gm spray NAS SCH (10:00)
[2024-06-07 10:45] VITALS: BP 101/54
[2024-06-07 16:00] VITALS: BP 102/55
[2024-06-07] MEDS ORDERED: Loperamide Hydrochloride 2 MG CAP PO ONE (19:10)
[2024-06-07 20:00] VITALS: BP 104/66
[2024-06-08 01:10] VITALS: BP 96/51
[2024-06-08 08:00] VITALS: BP 90/74
[2024-06-08 12:00] VITALS: BP 89/49
[2024-06-08 16:00] VITALS: BP 97/51
[2024-06-08] MEDS ORDERED: Menthol/Zinc Oxide 4 GM THIN T SCH (19:45)
[2024-06-08 20:00] VITALS: BP 100/56
[2024-06-09] VITALS: BP 95/50
[2024-06-09 06:59] LABS: BUN 9 mg/dl (9-23); CHLORIDE 111 mmol/L (98-107); POTASSIUM 3.1 mmol/L (3.4-5.1)
[2024-06-09 07:02] LABS: BASO % 0.4 % (0.0-1.0); EOS # 0.3 10*3/uL (0.0-0.4); HEMATOCRIT 29.9 % (37.0-47.0); MEAN CORPUSCULAR HGB 30.1 pg (27.0-31.0); MEAN CORPUSCULAR HGB CONC 30.1 g/dl (33.0-37.0); MEAN PLATELET VOLUME 10.6 fl (9.6-12.3); MONO # 0.5 10*3/uL (0.1-1.0); NEUT # 3.9 10*3/uL (2.3-7.9); NEUT % 77.8 % (47.0-73.0); PLATELET COUNT AUTOMATED 186 10*3/uL (130-400); RED BLOOD COUNT 2.99 10*6/uL (4.10-5.10); RED CELL DISTRI WIDTH 19.3 % (0-14.5)
[2024-06-09 08:00] VITALS: BP 91/51
[2024-06-09] MEDS ORDERED: POTASSIUM CHLORIDE 20 MEQ TAB PO ONE (08:50)
[2024-06-09 12:00] VITALS: BP 97/54
[2024-06-09 16:00] VITALS: BP 93/46
[2024-06-09] MEDS ORDERED: CALMOSEPTINE OI71 GM T (17:58)
[2024-06-09 20:00] VITALS: BP 100/60
[2024-06-10] VITALS: BP 99/53
[2024-06-10 06:31] LABS: BUN 10 mg/dl (9-23); CHLORIDE 114 mmol/L (98-107); POTASSIUM 3.2 mmol/L (3.4-5.1)
[2024-06-10 06:49] LABS: BASO % 0.7 % (0.0-1.0); EOS # 0.2 10*3/uL (0.0-0.4); EOS % 5.2 % (1.0-4.0); HEMATOCRIT 27.3 % (37.0-47.0); MEAN CORPUSCULAR HGB 30.4 pg (27.0-31.0); MEAN CORPUSCULAR HGB CONC 30.4 g/dl (33.0-37.0); MEAN PLATELET VOLUME 10.7 fl (9.6-12.3); MONO # 0.4 10*3/uL (0.1-1.0); NEUT % 75.1 % (47.0-73.0); PLATELET COUNT AUTOMATED 155 10*3/uL (130-400); RED BLOOD COUNT 2.73 10*6/uL (4.10-5.10); RED CELL DISTRI WIDTH 18.9 % (0-14.5)
[2024-06-10] MEDS ORDERED: POTASSIUM CHLORIDE 20 MEQ TAB PO ONE (07:50)
[2024-06-10 08:00] VITALS: BP 102/62
[2024-06-10 12:00] VITALS: BP 104/65
[2024-06-10 16:00] VITALS: BP 107/56
[2024-06-10 20:00] VITALS: BP 92/57
[2024-06-11] VITALS: BP 107/57
[2024-06-11] MEDS ORDERED: HEPARIN SODIUM 500 UNIT/5 ML SYR IV SCH (04:15)
[2024-06-11 06:28] LABS: ALKALINE PHOSPHATASE 86 U/L (46-116); BUN 9 mg/dl (9-23); CHLORIDE 110 mmol/L (98-107); POTASSIUM 3.6 mmol/L (3.4-5.1); TOTAL PROTEIN 5.3 gm/dL (6.0-8.0)
[2024-06-11 06:31] LABS: BASO % 0.4 % (0.0-1.0); EOS # 0.3 10*3/uL (0.0-0.4); EOS % 5.7 % (1.0-4.0); MEAN CELL VOLUME 100.9 fl (81.0-99.0); MEAN CORPUSCULAR HGB 29.7 pg (27.0-31.0); MEAN CORPUSCULAR HGB CONC 29.4 g/dl (33.0-37.0); MEAN PLATELET VOLUME 10.9 fl (9.6-12.3); MONO # 0.4 10*3/uL (0.1-1.0); MONO % 9.6 % (3.0-9.0); NEUT # 3.5 10*3/uL (2.3-7.9); NEUT % 75.9 % (47.0-73.0); PLATELET COUNT AUTOMATED 195 10*3/uL (130-400); RED BLOOD COUNT 3.17 10*6/uL (4.10-5.10); RED CELL DISTRI WIDTH 18.8 % (0-14.5); WHITE BLOOD COUNT 4.6 10*3/uL (4.8-10.8)
[2024-06-11 06:42] LABS: SGPT/ALT < 7 U/L (5-49)
[2024-06-11 08:00] VITALS: BP 124/72; BP 94/53
[2024-06-11 12:00] VITALS: BP 92/49
[2024-06-11 16:00] VITALS: BP 103/61
[2024-06-11] MEDS ORDERED: FOAM BANDAGE 1 EACH BANDAGE T ONE (16:22)
[2024-06-11] MEDS ORDERED: HYDROGEL WOUND DRESSING T ONE (16:22)
[2024-06-11] MEDS ORDERED: FOAM BANDAGE HEEL T ONE (16:22)
[2024-06-11] MEDS ORDERED: Dicyclomine Hydrochloride 20 MG/10 ML OSYR PO STA (16:59)
[2024-06-11] MEDS ORDERED: Lidocaine Hydrochloride 15 ML UDC PO STA (16:59)
[2024-06-11] MEDS ORDERED: MG-AL HYDROXIDE/SIMETICONE 30 ML UDC PO STA (16:59)
[2024-06-11] MEDS ORDERED: Loperamide Hydrochloride 2 MG CAP PO ONE (17:00)
[2024-06-11 20:00] VITALS: BP 102/56
[2024-06-12] VITALS (8 sets, daily range): BP systolic 72–105; BP diastolic 44–58
[2024-06-12] MEDS ORDERED: HEPARIN SODIUM 500 UNIT/5 ML SYR IV SCH (04:15)
[2024-06-12 06:22] LABS: BASO % 0.2 % (0.0-1.0); EOS # 0.3 10*3/uL (0.0-0.4); EOS % 6.6 % (1.0-4.0); HEMATOCRIT 31.6 % (37.0-47.0); MEAN CORPUSCULAR HGB CONC 29.7 g/dl (33.0-37.0); MEAN PLATELET VOLUME 10.8 fl (9.6-12.3); MONO # 0.5 10*3/uL (0.1-1.0); MONO % 12.1 % (3.0-9.0); NEUT # 3.1 10*3/uL (2.3-7.9); NEUT % 73.8 % (47.0-73.0); PLATELET COUNT AUTOMATED 190 10*3/uL (130-400); RED BLOOD COUNT 3.13 10*6/uL (4.10-5.10); RED CELL DISTRI WIDTH 18.9 % (0-14.5); WHITE BLOOD COUNT 4.2 10*3/uL (4.8-10.8)
[2024-06-12 07:13] LABS: ALKALINE PHOSPHATASE 85 U/L (46-116); BUN 11 mg/dl (9-23); CHLORIDE 109 mmol/L (98-107); POTASSIUM 3.7 mmol/L (3.4-5.1)
[2024-06-12 07:45] LABS: SGPT/ALT < 7 U/L (5-49)
[2024-06-12] MEDS ORDERED: FERROUS SULFATE 325 MG TAB PO SCH (10:00)
[2024-06-12] MEDS ORDERED: SODIUM CHLORIDE 0.9% 1,000 ML IV ONE ×2 (10:20→10:41)
[2024-06-12] MEDS ORDERED: AQUAPHOR OINTMENT Base 50 GM TUBE T PRN (10:40)
[2024-06-12] MEDS ORDERED: Sulfamethoxazole/Trimethopri 1 TAB TAB PO SCH (22:00)
[2024-06-13] VITALS: BP 103/54
[2024-06-13] MEDS ORDERED: Meropenem 50 ML IV SCH (02:00)
[2024-06-13 06:05] LABS: BUN 13 mg/dl (9-23); CHLORIDE 110 mmol/L (98-107); POTASSIUM 3.6 mmol/L (3.4-5.1)
[2024-06-13 06:20] LABS: BASO % 0.6 % (0.0-1.0); EOS # 0.3 10*3/uL (0.0-0.4); EOS % 7.4 % (1.0-4.0); HEMATOCRIT 31.4 % (37.0-47.0); MEAN CELL VOLUME 100.3 fl (81.0-99.0); MEAN CORPUSCULAR HGB 30.4 pg (27.0-31.0); MEAN CORPUSCULAR HGB CONC 30.3 g/dl (33.0-37.0); MEAN PLATELET VOLUME 10.6 fl (9.6-12.3); MONO # 0.5 10*3/uL (0.1-1.0); MONO % 13.9 % (3.0-9.0); NEUT # 2.4 10*3/uL (2.3-7.9); NEUT % 67.9 % (47.0-73.0); PLATELET COUNT AUTOMATED 172 10*3/uL (130-400); RED BLOOD COUNT 3.13 10*6/uL (4.10-5.10); RED CELL DISTRI WIDTH 18.9 % (0-14.5); WHITE BLOOD COUNT 3.5 10*3/uL (4.8-10.8)
[2024-06-13 08:00] VITALS: BP 102/53
[2024-06-13 12:00] VITALS: BP 90/51
[2024-06-13 16:00] VITALS: BP 129/50
[2024-06-13 20:00] VITALS: BP 90/50
[2024-06-14] VITALS (7 sets, daily range): BP systolic 79–134; BP diastolic 42–56
[2024-06-14] MEDS ORDERED: SODIUM CHLORIDE 0.9% 500 ML IV ONE (00:40)
[2024-06-14] MEDS ORDERED: FOAM BANDAGE 1 EACH BANDAGE T ONE (02:25)
[2024-06-14 06:36] LABS: BUN 12 mg/dl (9-23); CHLORIDE 109 mmol/L (98-107); POTASSIUM 3.4 mmol/L (3.4-5.1)
[2024-06-14 07:32] LABS: BASO % 0.6 % (0.0-1.0); EOS # 0.3 10*3/uL (0.0-0.4); HEMATOCRIT 33.3 % (37.0-47.0); MEAN CELL VOLUME 103.1 fl (81.0-99.0); MEAN CORPUSCULAR HGB CONC 29.1 g/dl (33.0-37.0); MEAN PLATELET VOLUME 11.2 fl (9.6-12.3); MONO # 0.5 10*3/uL (0.1-1.0); MONO % 15.1 % (3.0-9.0); NEUT # 2.3 10*3/uL (2.3-7.9); NEUT % 66.1 % (47.0-73.0); PLATELET COUNT AUTOMATED 191 10*3/uL (130-400); RED BLOOD COUNT 3.23 10*6/uL (4.10-5.10); RED CELL DISTRI WIDTH 18.8 % (0-14.5); WHITE BLOOD COUNT 3.5 10*3/uL (4.8-10.8)
[2024-06-14] MEDS ORDERED: Loperamide Hydrochloride 2 MG CAP PO ONE (17:20)
[2024-06-14] MEDS ORDERED: SODIUM CHLORIDE 0.9% 1,000 ML IV ONE (18:55)
[2024-06-14] MEDS ORDERED: Menthol/Zinc Oxide 113 GM THIN T SCH (20:00)
[2024-06-15] VITALS: BP 97/54
[2024-06-15 05:30] LABS: BUN 9 mg/dl (9-23); CHLORIDE 112 mmol/L (98-107); POTASSIUM 3.1 mmol/L (3.4-5.1)
[2024-06-15 06:14] LABS: MEAN CORPUSCULAR HGB CONC 29.7 g/dl (33.0-37.0); PLATELET COUNT AUTOMATED 187 10*3/uL (130-400); RED BLOOD COUNT 2.87 10*6/uL (4.10-5.10); RED CELL DISTRI WIDTH 18.6 % (0-14.5)
[2024-06-15 06:22] LABS: MANUAL DIFF REFLEX YES
[2024-06-15 07:30] LABS: TOTAL CELLS COUNTED 100 #CELLS
[2024-06-15 07:31] LABS: PLATELET SUFFICIENCY NORMAL (NORMAL)
[2024-06-15] MEDS ORDERED: ERTAPENEM1 GM IV (07:39)
[2024-06-15] MEDS ORDERED: DOXYCYCLINE HY100 M3 PO (07:41)
[2024-06-15] MEDS ORDERED: CALMOSEPTINE OI71 GM T (07:41)
[2024-06-15 08:00] VITALS: BP 84/53
[2024-06-15 11:55] VITALS: BP 106/49
[2024-06-15] MEDS ORDERED: Ertapenem Sodium 1 GM in SODIUM CHLORIDE 0.9% 50 ML IV ONE (12:35)
[2024-06-15] MEDS ORDERED: XARE20MG PO (15:10)
[2024-06-15] MEDS ORDERED: MIDODRINE HCL5 M1 PO (15:10)
[2024-06-15] MEDS ORDERED: MUCUS RELIEF E600 MG PO (15:10)
[2024-06-15 16:00] VITALS: BP 104/62
== END 2024-06-15 17:54 | disposition home health service (06) | DRG 871 ==
LOC: ED 21:43 → EDHOLD 06-03 01:56 → 4E 06-03 01:56 → ICCU 06-03 01:56 → EDHOLD 06-03 09:11 → 4E 06-03 19:36 → ICCU 06-03 21:28 → 4E 06-06 06:52
PROVIDERS: Internal Medicine; Internal Medicine Infectious Disease; Student in an Organized Health Care Education/Training Program; ADMIT Student in an Organized Health Care Education/Training Program; ATTEND Student in an Organized Health Care Education/Training Program
PROC: 30233N1 Transfusion of Nonautologous Red Blood Cells into Peripheral Vein, Percutaneous Approach (ICD-10-PCS; principal; 2024-06-04)
DX: A41.59 Other Gram-negative sepsis (principal); E43 Unspecified severe protein-calorie malnutrition; J12.89 Other viral pneumonia; J69.0 Pneumonitis due to inhalation of food and vomit; R65.21 Severe sepsis with septic shock; J96.01 Acute respiratory failure with hypoxia; C90.00 Multiple myeloma not having achieved remission; E87.0 Hyperosmolality and hypernatremia; J90 Pleural effusion, not elsewhere classified; N13.6 Pyonephrosis; Z16.12 Extended spectrum beta lactamase (ESBL) resistance; D84.9 Immunodeficiency, unspecified; J98.11 Atelectasis; I95.9 Hypotension, unspecified; K44.9 Diaphragmatic hernia without obstruction or gangrene; B96.1 Klebsiella pneumoniae [K. pneumoniae] as the cause of diseases classified elsewhere; G62.9 Polyneuropathy, unspecified; E86.0 Dehydration; R32 Unspecified urinary incontinence; J98.6 Disorders of diaphragm; D53.9 Nutritional anemia, unspecified; R91.1 Solitary pulmonary nodule; E86.1 Hypovolemia; Z20.822 Contact with and (suspected) exposure to COVID-19; I10 Essential (primary) hypertension; R73.9 Hyperglycemia, unspecified; E87.6 Hypokalemia; K21.9 Gastro-esophageal reflux disease without esophagitis; I48.0 Paroxysmal atrial fibrillation; R53.81 Other malaise; Z96.641 Presence of right artificial hip joint; A08.8 Other specified intestinal infections; L89.322 Pressure ulcer of left buttock, stage 2; Z98.51 Tubal ligation status; Z79.899 Other long term (current) drug therapy; Z87.891 Personal history of nicotine dependence; Z68.24 Body mass index [BMI] 24.0-24.9, adult

== ENCOUNTER → 2024-07-03 | Outpatient (CLI) | payer OTHER ==
[~2024-07-03] MED LIST changes: +ASCORBIC ACID500 M2 PO; +CALMOSEPTINE OI71 GM T; +DOXYCYCLINE HY100 M3 PO; +ERTAPENEM1 GM IV; +FEOSOL325 MG PO; +MIDODRINE HCL5 M1 PO; +MUCUS RELIEF E600 MG PO; +NATURE'S BLEND F1 MG PO; +POTASSIUM CHLO20 ME3 PO; +REMERON15 M2 PO; +SMZ/TMP DS 800-160; +XARE20MG PO
== END | disposition home or self-care (01) ==
LOC: RAD 12:31
PROVIDERS: ATTEND Internal Medicine Hematology & Oncology
DX: C90.00 Multiple myeloma not having achieved remission (principal); I82.401 Acute embolism and thrombosis of unspecified deep veins of right lower extremity; D80.3 Selective deficiency of immunoglobulin G [IgG] subclasses; D50.9 Iron deficiency anemia, unspecified; M19.071 Primary osteoarthritis, right ankle and foot; M79.89 Other specified soft tissue disorders; M77.31 Calcaneal spur, right foot; M85.88 Other specified disorders of bone density and structure, other site

== ENCOUNTER → 2024-07-14 | Outpatient (CLI) | payer OTHER ==
[2024-07-14 11:04] LABS: MEAN CELL VOLUME 100.3 fl (81.0-99.0); MEAN CORPUSCULAR HGB 30.1 pg (27.0-31.0); MEAN PLATELET VOLUME 9.9 fl (9.6-12.3); NUCLEATED RED BLOOD CELL 0.3 % (0.0-0.0); PLATELET COUNT AUTOMATED 253 10*3/uL (130-400); RED BLOOD COUNT 3.09 10*6/uL (4.10-5.10); RED CELL DISTRI WIDTH 18.6 % (0-14.5); WHITE BLOOD COUNT 7.5 10*3/uL (4.8-10.8)
[2024-07-14 11:05] LABS: MANUAL DIFF REFLEX YES
[2024-07-14 11:25] LABS: ALKALINE PHOSPHATASE 122 U/L (46-116); BUN 11 mg/dl (9-23); CHLORIDE 106 mmol/L (98-107); POTASSIUM 3.7 mmol/L (3.4-5.1); TOTAL PROTEIN 6.2 gm/dL (6.0-8.0)
[2024-07-14 11:26] LABS: SGPT/ALT < 7 U/L (5-49)
[2024-07-14 11:49] LABS: PLATELET SUFFICIENCY NORMAL (NORMAL); TOTAL CELLS COUNTED 100 #CELLS
== END | disposition home or self-care (01) ==
LOC: LAB 10:45
PROVIDERS: ATTEND Nurse Practitioner Family
DX: R50.9 Fever, unspecified (principal)